=== PATIENT | female | born 1950 | race Caucasian/White ===

== ENCOUNTER 2016-10-29 11:18 | Emergency (ER) | payer MEDICAID ==
[~2016-10-29] VITALS: Ht 154.9 cm; Wt 68.9 kg
[~2016-10-29 11:18] MED LIST: AMLO5TAB4 PO; CLON2TAB4 PO; DIVA250T2 PO; DULO60CA41 PO; LORA2TAB95 PO; QUET200T PO; VIT500LI PO; ZOLP10TA2 PO; [UNRECOGNIZED DRUG - CODE] PO
[2016-10-29 11:19] VITALS: BP_SYST 106
[2016-10-29] MEDS ORDERED: fentaNYL CITRATE/PF 100 MCG/2 ML AMP IM ONE (14:30)
[2016-10-29] MEDS ORDERED: ONDANSETRON 4 MG ODT TAB PO ONE ×2 (14:30→15:45)
[2016-10-29] MEDS ORDERED: MORPHINE 4 MG/ML INJ. SYRINGE IVP ONE (15:45)
[2016-10-29 17:05] VITALS: BP_SYST 130
== END 2016-10-29 17:05 | disposition home or self-care (01) ==
LOC: SED 11:18
DX: M25.511 Pain in right shoulder (principal); I25.2 Old myocardial infarction; I10 Essential (primary) hypertension; G43.909 Migraine, unspecified, not intractable, without status migrainosus; F31.9 Bipolar disorder, unspecified; Z88.6 Allergy status to analgesic agent; Z88.8 Allergy status to other drugs, medicaments and biological substances
CPT/HCPCS: 73030; 73060; 96372; 96374; 99284; J2270; J3010; Q0162

== ENCOUNTER 2017-04-25 18:10 | Emergency (ER) | payer MEDICAID, OTHER ==
[~2017-04-25] VITALS: Ht 154.9 cm; Wt 74.8 kg
[2017-04-25 18:35] VITALS: BP_SYST 122
[2017-04-25] MEDS ORDERED: IPRATROPIUM/ALBUTEROL SULFATE 3 ML AMPUL.NEB INH ONE (19:00)
[2017-04-25] MEDS ORDERED: DEXAMETHASONE SOD PHOSPHATE 10 MG/ML VIAL IVP ONE (19:00)
[2017-04-25] MEDS ORDERED: MORPHINE 4 MG/ML INJ. SYRINGE IVP ONE (19:00)
[2017-04-25] MEDS ORDERED: DIPHENHYDRAMINE INJ 50 MG/ML VIAL IVP ONE (19:00)
[2017-04-25 19:30] LABS: BASOPHILS % (AUTO) 0.3 % (0.0-2.0); EOSINOPHILS # (AUTO) 0.3 K/uL (0.0-0.4); EOSINOPHILS % (AUTO) 2.6 % (0.0-4.0); HEMATOCRIT 40.8 % (36-48); HEMOGLOBIN 13.8 g/dL (12.0-16.0); LYMPHOCYTES # (AUTO) 3.1 K/uL (1.0-5.5); LYMPHOCYTES % (AUTO) 28.5 % (20.5-51.5); MEAN CORPUSCULAR HEMOGLOBIN 33 pg (27-31); MEAN CORPUSCULAR HGB CONC 34 % (32-36); MEAN CORPUSCULAR VOLUME 97 fL (79.0-98.0); MONOCYTES % (AUTO) 9.4 % (1.7-9.3); NEUTROPHILS # (AUTO) 6.6 K/uL (1.8-7.7); NEUTROPHILS % (AUTO) 59.2 % (40.0-70.0); PLATELET COUNT (AUTO) 289 K/uL (130-430); RED BLOOD CELL COUNT(AUTO) 4.22 MIL/uL (4.2-6.2); RED CELL DISTRIBUTION WIDTH 11.8 % (9.0-15.0)
[2017-04-25] MEDS ORDERED: NACL 0.9% 1,000 ML IV ONE (19:30)
[2017-04-25 19:46] LABS: CREATININE 1.03 mg/dL (0.55-1.30); POTASSIUM 3.7 mmol/L (3.5-5.1)
[2017-04-25 19:51] LABS: ALBUMIN 3.5 g/dL (3.4-4.8); TOTAL BILIRUBIN 0.3 mg/dL (0.0-1.0)
[2017-04-25] MEDS ORDERED: cefTRIAXone 1 GM in D5W 50 ML IV ONE (20:00)
[2017-04-25] MEDS ORDERED: cefTRIAXone 1 GM IVPB PREMIX 50 ML IV ONE (20:04)
[2017-04-25] MEDS ORDERED: MORPHINE 2 MG/ML INJ. SYRINGE IVP ONE (20:45)
[2017-04-25 22:00] VITALS: BP_SYST 130
== END 2017-04-25 22:00 | disposition home or self-care (01) ==
LOC: SED 18:10
DX: J18.9 Pneumonia, unspecified organism (principal); I25.2 Old myocardial infarction; I10 Essential (primary) hypertension; G43.909 Migraine, unspecified, not intractable, without status migrainosus; F31.9 Bipolar disorder, unspecified; F17.210 Nicotine dependence, cigarettes, uncomplicated; Z71.6 Tobacco abuse counseling; Z90.49 Acquired absence of other specified parts of digestive tract; Z90.710 Acquired absence of both cervix and uterus; Z88.6 Allergy status to analgesic agent; Z88.1 Allergy status to other antibiotic agents; Z79.899 Other long term (current) drug therapy
CPT/HCPCS: 36415; 71010; 80053; 83605; 85025; 86710; 87040; 93005; 94640; 96361; 96365; 96374; 96375; 96376; J0696; J1100; J1200; J2270 ×2; J7030; 99285

== ENCOUNTER 2017-05-31 09:40 | Emergency (ER) | payer OTHER ==
[~2017-05-31] VITALS: Ht 154.9 cm; Wt 73.5 kg
[2017-05-31 09:55] VITALS: BP_SYST 115
[2017-05-31] MEDS ORDERED: traMADol HCL HCL 50 MG TABLET (ULTRAM) PO ONE (11:30)
[2017-05-31 11:50] VITALS: BP_SYST 115
== END 2017-05-31 11:50 | disposition home or self-care (01) ==
LOC: SED 09:40
DX: G89.29 Other chronic pain (principal); M25.511 Pain in right shoulder; M54.9 Dorsalgia, unspecified; I10 Essential (primary) hypertension; I25.2 Old myocardial infarction; G43.909 Migraine, unspecified, not intractable, without status migrainosus; F31.9 Bipolar disorder, unspecified; Z76.5 Malingerer [conscious simulation]; Z88.6 Allergy status to analgesic agent
CPT/HCPCS: 99283

== ENCOUNTER 2017-11-05 12:20 | Emergency (ER) | payer MEDICARE, MEDICAID ==
[~2017-11-05] VITALS: Ht 154.9 cm; Wt 68.0 kg
[2017-11-05 12:27] VITALS: BP_SYST 111
[2017-11-05 14:44] LABS: BASOPHILS # (AUTO) 0.1 K/uL (0.0-0.2); BASOPHILS % (AUTO) 1.2 % (0.0-2.0); EOSINOPHILS # (AUTO) 0.3 K/uL (0.0-0.4); EOSINOPHILS % (AUTO) 3.2 % (0.0-4.0); HEMATOCRIT 39.9 % (36-48); HEMOGLOBIN 13.6 g/dL (12.0-16.0); LYMPHOCYTES # (AUTO) 2.3 K/uL (1.0-5.5); LYMPHOCYTES % (AUTO) 27.1 % (20.5-51.5); MEAN CORPUSCULAR HEMOGLOBIN 33 pg (27-31); MEAN CORPUSCULAR HGB CONC 34 % (32-36); MEAN CORPUSCULAR VOLUME 97 fL (79.0-98.0); MONOCYTES # (AUTO) 0.5 K/uL (0.0-1.0); MONOCYTES % (AUTO) 6.3 % (1.7-9.3); NEUTROPHILS # (AUTO) 5.2 K/uL (1.8-7.7); NEUTROPHILS % (AUTO) 62.2 % (40.0-70.0); PLATELET COUNT (AUTO) 247 K/uL (130-430); RED BLOOD CELL COUNT(AUTO) 4.13 MIL/uL (4.2-6.2); RED CELL DISTRIBUTION WIDTH 11.8 % (9.0-15.0); WHITE BLOOD COUNT (AUTO) 8.4 K/uL (4.8-10.8)
[2017-11-05 14:45] LABS: CALCIUM 9.4 mg/dL (8.4-11.0); CREATININE 0.91 mg/dL (0.55-1.30); POTASSIUM 4.1 mmol/L (3.5-5.1)
[2017-11-05 14:48] LABS: PROTHROMBIN TIME 10.2 SECS (9.5-12.5)
[2017-11-05 14:51] LABS: ALBUMIN 3.6 g/dL (3.4-4.8); TOTAL BILIRUBIN 0.2 mg/dL (0.0-1.0)
[2017-11-05 15:22] LABS: BILIRUBIN,URINE NEGATIVE (NEGATIVE); CLARITY/URINE CLEAR (CLEAR); COLOR,URINE YELLOW (YELLOW); GLUCOSE,URINE NEGATIVE (NEGATIVE); KETONES,URINE NEGATIVE (NEGATIVE); LEUKOCYTE ESTERASE ,URINE 1+ (NEGATIVE); NITRITE, URINE NEGATIVE (NEGATIVE); PH,URINE 5.5 (5.0-8.0); PROTEIN URINE NEGATIVE (NEGATIVE); UROBILINOGEN,URINE 0.2 (0.2-1.0)
[2017-11-05 15:26] LABS: BLOOD, URINE TRACE (NEGATIVE)
[2017-11-05 15:36] LABS: BARBITURATE, URINE NEGATIVE (NEG <=200); BENZODIAZEPINE, URINE POSITIVE (NEG <=150); CANNABINOID, URINE NEGATIVE (NEG <=50); COCAINE, URINE NEGATIVE (NEG <=150); METHAMPHETAMINES SCREEN,URINE NEGATIVE (NEG <=500); OPIATE, URINE POSITIVE (NEG <=100); PHENCYCLIDINE SCREEN,URINE NEGATIVE (NEG <=25); UR TRICYCLIC ANTIDEPRESSANTS NEGATIVE (NEG <=300); URINE AMPHETAMINE NEGATIVE (NEG <=500); URINE METHADONE NEGATIVE (NEG <=200); URINE OXYCODONE SCREEN NEGATIVE (NEG <=100); URINE PROPOXYPHENE SCREEN NEGATIVE (NEG <=300)
[2017-11-05 15:45] LABS: BACTERIA,URINE RARE /HPF (None Seen); RBC,URINE 0-3 /HPF (0-3); WBC,URINE 0-3 /HPF (0-3)
[2017-11-05] MEDS: ONDANSETRON 4 MG ODT TAB PO ONE (16:05)
[2017-11-05] MEDS: MORPHINE 4 MG/ML INJ. SYRINGE IM ONE (16:25)
[2017-11-05 16:30] VITALS: BP_SYST 122
== END 2017-11-05 16:32 | disposition home or self-care (01) ==
LOC: SED 12:20
DX: N39.0 Urinary tract infection, site not specified (principal); K59.00 Constipation, unspecified; E78.5 Hyperlipidemia, unspecified; I10 Essential (primary) hypertension; I25.2 Old myocardial infarction; F31.9 Bipolar disorder, unspecified; G43.909 Migraine, unspecified, not intractable, without status migrainosus; Z90.49 Acquired absence of other specified parts of digestive tract; Z88.5 Allergy status to narcotic agent; Z88.6 Allergy status to analgesic agent; Z90.710 Acquired absence of both cervix and uterus
CPT/HCPCS: 36415; 74176; 80053; 80307; 81000; 83690; 84484; 85025; 85610; 85730; 87086; 93005; 96372; 99285; J2270; Q0162

== ENCOUNTER 2017-12-02 08:23 | Emergency (ER) | payer MEDICARE, MEDICAID ==
[~2017-12-02] VITALS: Ht 154.9 cm; Wt 68.0 kg
[~2017-12-02 08:23] MED LIST changes: +ALBU8.5H8 INH; +ASPI-1063 PO; +COR3.125 PO; +FAMO20TA98 PO; +SIMV20TA2 PO
[2017-12-02 08:27] VITALS: BP_SYST 103
[2017-12-02] MEDS ORDERED: ALBUTEROL SULFATE 0.083% 2.5 MG/3 ML VIAL.NEB INH ONE (09:15)
[2017-12-02] MEDS ORDERED: IPRATROPIUM BROM 0.5 MG/2.5 ML VIAL.NEB (ATROVENT) INH ONE (09:15)
[2017-12-02 09:22] LABS: BASOPHILS % (AUTO) 0.6 % (0.0-2.0); EOSINOPHILS # (AUTO) 0.2 K/uL (0.0-0.4); EOSINOPHILS % (AUTO) 2.8 % (0.0-4.0); HEMATOCRIT 42.8 % (36-48); HEMOGLOBIN 14.5 g/dL (12.0-16.0); LYMPHOCYTES # (AUTO) 1.9 K/uL (1.0-5.5); MEAN CORPUSCULAR HEMOGLOBIN 32 pg (27-31); MEAN CORPUSCULAR HGB CONC 34 % (32-36); MEAN CORPUSCULAR VOLUME 95 fL (79.0-98.0); MONOCYTES # (AUTO) 0.5 K/uL (0.0-1.0); MONOCYTES % (AUTO) 6.6 % (1.7-9.3); NEUTROPHILS # (AUTO) 5.4 K/uL (1.8-7.7); PLATELET COUNT (AUTO) 250 K/uL (130-430); RED BLOOD CELL COUNT(AUTO) 4.49 MIL/uL (4.2-6.2); RED CELL DISTRIBUTION WIDTH 12.2 % (9.0-15.0)
[2017-12-02 09:28] LABS: CALCIUM 9.2 mg/dL (8.4-11.0); CREATININE 0.72 mg/dL (0.55-1.30); POTASSIUM 3.6 mmol/L (3.5-5.1)
[2017-12-02] MEDS ORDERED: HYDROcodone/ACETAMIN 5-325 MG TAB (NORCO/ VICODIN) PO ONE (09:30)
[2017-12-02 09:33] LABS: PROTHROMBIN TIME 10.4 SECS (9.5-12.5)
[2017-12-02 09:39] LABS: TOTAL BILIRUBIN 0.4 mg/dL (0.0-1.0)
[2017-12-02 09:40] LABS: ALBUMIN 3.7 g/dL (3.4-4.8)
[2017-12-02 11:42] VITALS: BP_SYST 108
== END 2017-12-02 11:34 | disposition home or self-care (01) ==
LOC: SED 08:23
DX: J45.909 Unspecified asthma, uncomplicated (principal); I10 Essential (primary) hypertension; I25.2 Old myocardial infarction; F31.9 Bipolar disorder, unspecified; Z79.82 Long term (current) use of aspirin; Z88.6 Allergy status to analgesic agent; Z79.899 Other long term (current) drug therapy; Z88.8 Allergy status to other drugs, medicaments and biological substances
CPT/HCPCS: 36415; 70450; 71045; 80053; 82550; 83880; 84484; 85025; 85610; 85730; 93005; 94640; 99285; J7613

== ENCOUNTER 2018-02-05 15:30 | Inpatient (IN) | payer MEDICARE, MEDICAID ==
[~2018-02-05] VITALS: Ht 154.9 cm; Wt 65.8 kg
[~2018-02-05 15:30] MED LIST changes: -ASPI-1063 PO; +ASPI-1153 PO; +CITA40TA11 PO; +CLON2TAB11 PO; -CLON2TAB4 PO; +FAMO-132 PO; -FAMO20TA98 PO; -[UNRECOGNIZED DRUG - CODE] PO
[2018-02-05] MEDS ORDERED: ALBUTEROL SULFATE 0.083% 2.5 MG/3 ML VIAL.NEB INH ONE (16:00)
[2018-02-05] MEDS ORDERED: LEVOFLOXACIN 500 MG/D5W 100 ML IV ONE (16:00)
[2018-02-05 16:04] VITALS: BP_SYST 95
[2018-02-05] MEDS ORDERED: DIPHENHYDRAMINE INJ 50 MG/ML VIAL IVP ONE (16:15)
[2018-02-05] MEDS ORDERED: MORPHINE 2 MG/ML INJ. SYRINGE IVP ONE (16:15)
[2018-02-05 16:25] LABS: CALCIUM 9.2 mg/dL (8.4-11.0); CREATININE 0.87 mg/dL (0.55-1.30); POTASSIUM 3.5 mmol/L (3.5-5.1)
[2018-02-05 16:26] LABS: PROTHROMBIN TIME 10.2 SECS (9.5-12.5)
[2018-02-05 16:28] LABS: BASOPHILS # (AUTO) 0.1 K/uL (0.0-0.2); EOSINOPHILS # (AUTO) 0.3 K/uL (0.0-0.4); LYMPHOCYTES # (AUTO) 2.9 K/uL (1.0-5.5)
[2018-02-05 16:30] LABS: ALBUMIN 3.7 g/dL (3.4-4.8); TOTAL BILIRUBIN 0.3 mg/dL (0.0-1.0)
[2018-02-05 16:36] LABS: BASOPHILS % (AUTO) 0.9 % (0.0-2.0); EOSINOPHILS % (AUTO) 3.5 % (0.0-4.0); HEMATOCRIT 38.8 % (36-48); HEMOGLOBIN 13.8 g/dL (12.0-16.0); LYMPHOCYTES % (AUTO) 34.8 % (20.5-51.5); MEAN CORPUSCULAR HEMOGLOBIN 34 pg (27-31); MEAN CORPUSCULAR HGB CONC 36 % (32-36); MEAN CORPUSCULAR VOLUME 95 fL (79.0-98.0); MONOCYTES # (AUTO) 0.7 K/uL (0.0-1.0); MONOCYTES % (AUTO) 8.6 % (1.7-9.3); NEUTROPHILS # (AUTO) 4.2 K/uL (1.8-7.7); NEUTROPHILS % (AUTO) 52.2 % (40.0-70.0); PLATELET COUNT (AUTO) 288 K/uL (130-430); RED BLOOD CELL COUNT(AUTO) 4.08 MIL/uL (4.2-6.2); RED CELL DISTRIBUTION WIDTH 12.3 % (9.0-15.0); WHITE BLOOD COUNT (AUTO) 8.2 K/uL (4.8-10.8)
[2018-02-05 17:45] LABS: BILIRUBIN,URINE NEGATIVE (NEGATIVE); BLOOD, URINE NEGATIVE (NEGATIVE); CLARITY/URINE CLEAR (CLEAR); COLOR,URINE YELLOW (YELLOW); GLUCOSE,URINE NEGATIVE (NEGATIVE); KETONES,URINE NEGATIVE (NEGATIVE); LEUKOCYTE ESTERASE ,URINE TRACE (NEGATIVE); NITRITE, URINE NEGATIVE (NEGATIVE); PH,URINE 5.5 (5.0-8.0); PROTEIN URINE NEGATIVE (NEGATIVE); UROBILINOGEN,URINE 0.2 (0.2-1.0)
[2018-02-05 17:50] LABS: BACTERIA,URINE FEW /HPF (None Seen); HYALINE CASTS, URINE 0-10 /LPF (None Seen); RBC,URINE 0-3 /HPF (0-3)
[2018-02-05 18:51] VITALS: BP_SYST 102
[2018-02-05 19:30] VITALS: BP_SYST 102
[2018-02-05 20:00] VITALS: BP_SYST 107
[2018-02-05] MEDS ORDERED: IPRATROPIUM/ALBUTEROL SULFATE 3 ML AMPUL.NEB INH PRN (20:15)
[2018-02-05] MEDS: QUEtiapine FUMARATE 100 MG TABLET PO SCH (21:06)
[2018-02-05] MEDS ORDERED: DIVALPROEX SODIUM 500 MG TAB.SR.24H (DEPAKOTE ER) PO ONE (21:06)
[2018-02-05] MEDS: LORazepam 1 MG TABLET PO SCH (21:07)
[2018-02-05] MEDS: ZOLPIDEM TARTRATE 5 MG TABLET PO SCH (21:07)
[2018-02-05] MEDS: clonazePAM 0.5 MG TABLET PO SCH (21:08)
[2018-02-05] MEDS: CARVEDILOL 3.125 MG TABLET (COREG) PO SCH (21:08)
[2018-02-05] MEDS: DIVALPROEX SODIUM 250 MG TAB.SR.24H (DEPAKOTE ER) PO SCH (21:09)
[2018-02-05] MEDS: SIMVASTATIN 20 MG TABLET PO SCH (21:12)
[2018-02-06 01:09] VITALS: BP_SYST 98
[2018-02-06 08:16] VITALS: BP_SYST 111
[2018-02-06] MEDS: CITALOPRAM HYDROBROMIDE 20 MG TABLET PO SCH (08:48)
[2018-02-06] MEDS: LORazepam 1 MG TABLET PO SCH ×2 (08:49→21:00)
[2018-02-06] MEDS: DIVALPROEX SODIUM 250 MG TAB.SR.24H (DEPAKOTE ER) PO SCH ×2 (08:49→20:59)
[2018-02-06] MEDS: clonazePAM 0.5 MG TABLET PO SCH (08:49)
[2018-02-06] MEDS: ASPIRIN 81 MG TABLET(ECOTRIN) PO SCH (08:49)
[2018-02-06] MEDS: FAMOTIDINE 20 MG TABLET PO SCH (08:50)
[2018-02-06] MEDS: amLODIPine BESYLATE 5 MG TABLET PO SCH (08:51)
[2018-02-06] MEDS: MORPHINE 2 MG/ML INJ. SYRINGE IVP PRN ×4 (08:55→21:17)
[2018-02-06] MEDS ORDERED: QUEtiapine FUMARATE 100 MG TABLET PO SCH (09:00)
[2018-02-06] MEDS ORDERED: DULoxetine HCL 30 MG CAPSULE.DR (CYMBALTA) PO SCH (09:00)
[2018-02-06] MEDS: CARVEDILOL 3.125 MG TABLET (COREG) PO SCH ×2 (09:00→21:00)
[2018-02-06 11:28] VITALS: BP_SYST 104
[2018-02-06 13:08] LABS: CALCIUM 9.4 mg/dL (8.4-11.0); CREATININE 0.74 mg/dL (0.55-1.30); POTASSIUM 3.8 mmol/L (3.5-5.1)
[2018-02-06 15:18] VITALS: BP_SYST 110
[2018-02-06 16:50] LABS: BASOPHILS # (AUTO) 0.1 K/uL (0.0-0.2); BASOPHILS % (AUTO) 0.6 % (0.0-2.0); EOSINOPHILS # (AUTO) 0.3 K/uL (0.0-0.4); EOSINOPHILS % (AUTO) 3.1 % (0.0-4.0); HEMATOCRIT 38.9 % (36-48); HEMOGLOBIN 13.5 g/dL (12.0-16.0); LYMPHOCYTES # (AUTO) 2.1 K/uL (1.0-5.5); LYMPHOCYTES % (AUTO) 24.5 % (20.5-51.5); MEAN CORPUSCULAR HEMOGLOBIN 33 pg (27-31); MEAN CORPUSCULAR HGB CONC 35 % (32-36); MEAN CORPUSCULAR VOLUME 95 fL (79.0-98.0); MONOCYTES # (AUTO) 0.5 K/uL (0.0-1.0); MONOCYTES % (AUTO) 5.4 % (1.7-9.3); NEUTROPHILS # (AUTO) 5.5 K/uL (1.8-7.7); NEUTROPHILS % (AUTO) 66.4 % (40.0-70.0); PLATELET COUNT (AUTO) 242 K/uL (130-430); RED BLOOD CELL COUNT(AUTO) 4.09 MIL/uL (4.2-6.2); RED CELL DISTRIBUTION WIDTH 12.1 % (9.0-15.0); WHITE BLOOD COUNT (AUTO) 8.5 K/uL (4.8-10.8)
[2018-02-06] MEDS: LEVOFLOXACIN 500 MG/D5W 100 ML IV SCH (17:00)
[2018-02-06 20:00] VITALS: BP_SYST 108
[2018-02-06] MEDS: QUEtiapine FUMARATE 100 MG TABLET PO SCH (20:59)
[2018-02-06] MEDS: SIMVASTATIN 20 MG TABLET PO SCH (20:59)
[2018-02-06] MEDS: ZOLPIDEM TARTRATE 5 MG TABLET PO SCH (21:00)
[2018-02-07] VITALS: BP_SYST 102
[2018-02-07] MEDS: MORPHINE 2 MG/ML INJ. SYRINGE IVP PRN ×3 (03:21→23:10)
[2018-02-07 04:55] VITALS: BP_SYST 97
[2018-02-07] MEDS: MORPHINE 4 MG/ML INJ. SYRINGE IVP PRN (07:39)
[2018-02-07 08:00] VITALS: BP_SYST 80
[2018-02-07] MEDS: amLODIPine BESYLATE 5 MG TABLET PO SCH (09:00)
[2018-02-07] MEDS: CARVEDILOL 3.125 MG TABLET (COREG) PO SCH (09:00)
[2018-02-07] MEDS ORDERED: NACL 0.9% 1,000 ML IV ONE (09:45)
[2018-02-07] MEDS: ASPIRIN 81 MG TABLET(ECOTRIN) PO SCH (10:32)
[2018-02-07] MEDS: DIVALPROEX SODIUM 250 MG TAB.SR.24H (DEPAKOTE ER) PO SCH ×2 (10:32→20:04)
[2018-02-07] MEDS: CITALOPRAM HYDROBROMIDE 20 MG TABLET PO SCH (10:32)
[2018-02-07] MEDS: PREDNISONE 20 MG TABLET PO SCH (10:37)
[2018-02-07] MEDS: LORazepam 1 MG TABLET PO SCH ×2 (10:38→20:05)
[2018-02-07] MEDS: FAMOTIDINE 20 MG TABLET PO SCH (10:38)
[2018-02-07 12:35] VITALS: BP_SYST 138
[2018-02-07 16:35] VITALS: BP_SYST 146
[2018-02-07] MEDS: LEVOFLOXACIN 500 MG/D5W 100 ML IV SCH (17:47)
[2018-02-07] MEDS: QUEtiapine FUMARATE 100 MG TABLET PO SCH (17:48)
[2018-02-07 20:00] VITALS: BP_SYST 143
[2018-02-07] MEDS: SIMVASTATIN 20 MG TABLET PO SCH (20:04)
[2018-02-07] MEDS: ZOLPIDEM TARTRATE 5 MG TABLET PO SCH (20:04)
[2018-02-07] MEDS: PROMETHAZINE-DM 6.25 MG-15 MG/5 ML UDC PO PRN (20:05)
[2018-02-08 01:16] VITALS: BP_SYST 113
[2018-02-08] MEDS: MORPHINE 2 MG/ML INJ. SYRINGE IVP PRN ×2 (03:29→14:13)
[2018-02-08 06:50] LABS: BASOPHILS # (AUTO) 0.1 K/uL (0.0-0.2); BASOPHILS % (AUTO) 1.3 % (0.0-2.0); EOSINOPHILS % (AUTO) 0.3 % (0.0-4.0); HEMATOCRIT 35.8 % (36-48); HEMOGLOBIN 12.5 g/dL (12.0-16.0); LYMPHOCYTES # (AUTO) 1.5 K/uL (1.0-5.5); LYMPHOCYTES % (AUTO) 14.4 % (20.5-51.5); MEAN CORPUSCULAR HEMOGLOBIN 34 pg (27-31); MEAN CORPUSCULAR HGB CONC 35 % (32-36); MEAN CORPUSCULAR VOLUME 97 fL (79.0-98.0); MONOCYTES # (AUTO) 0.5 K/uL (0.0-1.0); MONOCYTES % (AUTO) 5.3 % (1.7-9.3); NEUTROPHILS # (AUTO) 8.1 K/uL (1.8-7.7); NEUTROPHILS % (AUTO) 78.7 % (40.0-70.0); PLATELET COUNT (AUTO) 249 K/uL (130-430); RED BLOOD CELL COUNT(AUTO) 3.69 MIL/uL (4.2-6.2); WHITE BLOOD COUNT (AUTO) 10.3 K/uL (4.8-10.8)
[2018-02-08 07:02] LABS: CALCIUM 8.9 mg/dL (8.4-11.0); CREATININE 0.83 mg/dL (0.55-1.30); POTASSIUM 4.2 mmol/L (3.5-5.1)
[2018-02-08 08:00] VITALS: BP_SYST 115
[2018-02-08] MEDS: ASPIRIN 81 MG TABLET(ECOTRIN) PO SCH (09:58)
[2018-02-08] MEDS: DIVALPROEX SODIUM 250 MG TAB.SR.24H (DEPAKOTE ER) PO SCH ×2 (09:58→21:06)
[2018-02-08] MEDS: MORPHINE 4 MG/ML INJ. SYRINGE IVP PRN ×2 (09:58→18:08)
[2018-02-08] MEDS: FAMOTIDINE 20 MG TABLET PO SCH (09:58)
[2018-02-08] MEDS: LORazepam 1 MG TABLET PO SCH ×2 (09:58→21:06)
[2018-02-08] MEDS: PREDNISONE 20 MG TABLET PO SCH (09:59)
[2018-02-08] MEDS: CITALOPRAM HYDROBROMIDE 20 MG TABLET PO SCH (09:59)
[2018-02-08 12:00] VITALS: BP_SYST 118
[2018-02-08] MEDS: PROMETHAZINE-DM 6.25 MG-15 MG/5 ML UDC PO PRN (14:21)
[2018-02-08] MEDS: traMADol HCL HCL 50 MG TABLET (ULTRAM) PO PRN (15:40)
[2018-02-08] MEDS: QUEtiapine FUMARATE 100 MG TABLET PO SCH (17:44)
[2018-02-08] MEDS: LEVOFLOXACIN 500 MG/D5W 100 ML IV SCH (17:44)
[2018-02-08] MEDS ORDERED: LORazepam 1 MG TABLET PO PRN (19:00)
[2018-02-08 20:00] VITALS: BP_SYST 117
[2018-02-08] MEDS: SIMVASTATIN 20 MG TABLET PO SCH (21:04)
[2018-02-08] MEDS: ZOLPIDEM TARTRATE 5 MG TABLET PO SCH (21:04)
[2018-02-09 07:12] LABS: FREE T4 (FREE THYROXINE) 0.6 ng/dL (0.6-1.6); THYROID STIMULATING HORMONE 0.06 uIu/mL (0.34-4.82)
[2018-02-09] MEDS: FAMOTIDINE 20 MG TABLET PO SCH (08:36)
[2018-02-09] MEDS: CITALOPRAM HYDROBROMIDE 20 MG TABLET PO SCH (08:36)
[2018-02-09] MEDS: ASPIRIN 81 MG TABLET(ECOTRIN) PO SCH (08:36)
[2018-02-09] MEDS: LORazepam 1 MG TABLET PO SCH (08:37)
[2018-02-09] MEDS: DIVALPROEX SODIUM 250 MG TAB.SR.24H (DEPAKOTE ER) PO SCH (08:37)
[2018-02-09] MEDS: MORPHINE 2 MG/ML INJ. SYRINGE IVP PRN ×2 (08:40→14:35)
[2018-02-09] MEDS ORDERED: PREDNISONE 20 MG TABLET PO SCH (09:00)
[2018-02-09] MEDS ORDERED: QUEtiapine FUMARATE 100 MG TABLET PO SCH (09:00)
[2018-02-09 11:08] VITALS: BP_SYST 141
[2018-02-09] MEDS: traMADol HCL HCL 50 MG TABLET (ULTRAM) PO PRN ×2 (12:17→18:47)
[2018-02-09 14:58] VITALS: BP_SYST 139
[2018-02-09] MEDS: LEVOFLOXACIN 500 MG/D5W 100 ML IV SCH (17:27)
[2018-02-09] MEDS: QUEtiapine FUMARATE 100 MG TABLET PO SCH (17:28)
[2018-02-09 17:52] VITALS: BP_SYST 139
[2018-02-09] MEDS ORDERED: LEVO250T2 PO (18:07)
[2018-02-09] MEDS ORDERED: IPRA3AMP9 INH (18:07)
[2018-02-09] MEDS ORDERED: LACT1CAP68 PO (18:08)
== END 2018-02-09 20:10 | disposition home health service (06) | DRG 190 ==
LOC: SED 15:30 → STU 18:20 → SMU 02-08 18:50
PROVIDERS: ADMIT Internal Medicine; ATTEND Internal Medicine
DX: J44.1 Chronic obstructive pulmonary disease with (acute) exacerbation (principal); J18.9 Pneumonia, unspecified organism; N39.0 Urinary tract infection, site not specified; I11.9 Hypertensive heart disease without heart failure; F99 Mental disorder, not otherwise specified; J44.0 Chronic obstructive pulmonary disease with (acute) lower respiratory infection; R07.89 Other chest pain; G89.4 Chronic pain syndrome; E78.5 Hyperlipidemia, unspecified; E03.9 Hypothyroidism, unspecified; I25.10 Atherosclerotic heart disease of native coronary artery without angina pectoris; J20.9 Acute bronchitis, unspecified; F17.210 Nicotine dependence, cigarettes, uncomplicated; F41.9 Anxiety disorder, unspecified; E66.3 Overweight; F31.9 Bipolar disorder, unspecified; K21.9 Gastro-esophageal reflux disease without esophagitis; Z79.82 Long term (current) use of aspirin; Z90.710 Acquired absence of both cervix and uterus; I25.2 Old myocardial infarction; Z88.6 Allergy status to analgesic agent; Z88.8 Allergy status to other drugs, medicaments and biological substances; Z91.013 Allergy to seafood; Z79.899 Other long term (current) drug therapy; Z90.49 Acquired absence of other specified parts of digestive tract
CPT/HCPCS: 36415; 71045; 71046-TC; 80048; 80053; 81000-TC; 82962; 83605; 83880; 84439; 84443-TC; 84484; 85025; 85610-TC; 87040-TC; 87086; 93005; 94640; 96365; 96375; 99285; J1200; J1956; J2270; J7030; J7512; J7613

== ENCOUNTER 2018-03-09 14:25 | Emergency (ER) | payer MEDICARE, MEDICAID ==
[~2018-03-09] VITALS: Ht 154.9 cm; Wt 69.9 kg
[2018-03-09 14:25] VITALS: BP_SYST 124
[~2018-03-09 14:25] MED LIST changes: +IPRA3AMP9 INH; +LACT1CAP68 PO; +LEVO250T2 PO; -ZOLP10TA2 PO
[2018-03-09] MEDS ORDERED: fentaNYL CITRATE/PF 100 MCG/2 ML AMP IM ONE (15:00)
[2018-03-09 15:22] LABS: BASOPHILS # (AUTO) 0.1 K/uL (0.0-0.2); BASOPHILS % (AUTO) 1.2 % (0.0-2.0); EOSINOPHILS # (AUTO) 0.3 K/uL (0.0-0.4); EOSINOPHILS % (AUTO) 2.4 % (0.0-4.0); HEMATOCRIT 37.5 % (36-48); HEMOGLOBIN 12.6 g/dL (12.0-16.0); LYMPHOCYTES # (AUTO) 2.6 K/uL (1.0-5.5); LYMPHOCYTES % (AUTO) 23.4 % (20.5-51.5); MEAN CORPUSCULAR HEMOGLOBIN 32 pg (27-31); MEAN CORPUSCULAR HGB CONC 34 % (32-36); MEAN CORPUSCULAR VOLUME 96 fL (79.0-98.0); MONOCYTES # (AUTO) 0.5 K/uL (0.0-1.0); MONOCYTES % (AUTO) 4.5 % (1.7-9.3); NEUTROPHILS # (AUTO) 7.5 K/uL (1.8-7.7); NEUTROPHILS % (AUTO) 68.5 % (40.0-70.0); PLATELET COUNT (AUTO) 281 K/uL (130-430); RED CELL DISTRIBUTION WIDTH 11.8 % (9.0-15.0)
[2018-03-09 15:33] LABS: CALCIUM 9.5 mg/dL (8.4-11.0); CREATININE 0.87 mg/dL (0.55-1.30); POTASSIUM 3.4 mmol/L (3.5-5.1)
[2018-03-09 15:38] LABS: ALBUMIN 3.6 g/dL (3.4-4.8); TOTAL BILIRUBIN 0.3 mg/dL (0.0-1.0)
[2018-03-09] MEDS ORDERED: ONDANSETRON 4 MG ODT TAB PO ONE (16:15)
[2018-03-09 16:18] VITALS: BP_SYST 121
== END 2018-03-09 16:18 | disposition home or self-care (01) ==
LOC: SED 14:25
DX: R07.89 Other chest pain (principal); R10.32 Left lower quadrant pain; R11.0 Nausea; R06.00 Dyspnea, unspecified; J44.9 Chronic obstructive pulmonary disease, unspecified; I10 Essential (primary) hypertension; F17.200 Nicotine dependence, unspecified, uncomplicated; Z90.49 Acquired absence of other specified parts of digestive tract; Z90.710 Acquired absence of both cervix and uterus; Z79.899 Other long term (current) drug therapy; Z88.6 Allergy status to analgesic agent
CPT/HCPCS: 36415; 71045; 80053; 82550; 84484; 85025; 93005; 96372; 99285; J3010; Q0162

== ENCOUNTER 2018-04-18 08:09 | Emergency (ER) | payer MEDICARE, MEDICAID ==
[~2018-04-18] VITALS: Ht 154.9 cm; Wt 66.2 kg
[2018-04-18 08:31] VITALS: BP_SYST 130
[2018-04-18] MEDS ORDERED: NACL 0.9% 1,000 ML IV ONE (08:50)
[2018-04-18] MEDS ORDERED: ONDANSETRON HCL 4 MG/2 ML VIAL IVP ONE (09:00)
[2018-04-18] MEDS ORDERED: MORPHINE 4 MG/ML INJ. SYRINGE IVP ONE ×2 (09:00→10:30)
[2018-04-18 09:28] LABS: BASOPHILS # (AUTO) 0.2 K/uL (0.0-0.2); BASOPHILS % (AUTO) 1.8 % (0.0-2.0); EOSINOPHILS # (AUTO) 0.1 K/uL (0.0-0.4); EOSINOPHILS % (AUTO) 0.6 % (0.0-4.0); HEMATOCRIT 46.8 % (36-48); HEMOGLOBIN 15.4 g/dL (12.0-16.0); LYMPHOCYTES # (AUTO) 2.8 K/uL (1.0-5.5); LYMPHOCYTES % (AUTO) 20.3 % (20.5-51.5); MEAN CORPUSCULAR HEMOGLOBIN 31 pg (27-31); MEAN CORPUSCULAR HGB CONC 33 % (32-36); MEAN CORPUSCULAR VOLUME 95 fL (79.0-98.0); MONOCYTES # (AUTO) 0.8 K/uL (0.0-1.0); MONOCYTES % (AUTO) 5.9 % (1.7-9.3); NEUTROPHILS # (AUTO) 9.9 K/uL (1.8-7.7); NEUTROPHILS % (AUTO) 71.4 % (40.0-70.0); PLATELET COUNT (AUTO) 310 K/uL (130-430); RED BLOOD CELL COUNT(AUTO) 4.92 MIL/uL (4.2-6.2); RED CELL DISTRIBUTION WIDTH 12.5 % (9.0-15.0); WHITE BLOOD COUNT (AUTO) 13.8 K/uL (4.8-10.8)
[2018-04-18 09:38] LABS: CALCIUM 9.5 mg/dL (8.4-11.0); CREATININE 0.68 mg/dL (0.55-1.30); POTASSIUM 3.7 mmol/L (3.5-5.1)
[2018-04-18 09:41] LABS: BILIRUBIN,URINE NEGATIVE (NEGATIVE); CLARITY/URINE CLEAR (CLEAR); COLOR,URINE YELLOW (YELLOW); GLUCOSE,URINE NEGATIVE (NEGATIVE); KETONES,URINE NEGATIVE (NEGATIVE); LEUKOCYTE ESTERASE ,URINE TRACE (NEGATIVE); NITRITE, URINE NEGATIVE (NEGATIVE); PROTEIN URINE NEGATIVE (NEGATIVE); UROBILINOGEN,URINE 0.2 (0.2-1.0)
[2018-04-18 09:43] LABS: ALBUMIN 3.8 g/dL (3.4-4.8); TOTAL BILIRUBIN 0.4 mg/dL (0.0-1.0)
[2018-04-18 10:06] LABS: BLOOD, URINE TRACE (NEGATIVE)
[2018-04-18 10:08] LABS: BACTERIA,URINE RARE /HPF (None Seen)
[2018-04-18 13:15] VITALS: BP_SYST 134
== END 2018-04-18 13:15 | disposition home or self-care (01) ==
LOC: SED 08:09
DX: M47.896 Other spondylosis, lumbar region (principal); M54.5 Low back pain; F17.200 Nicotine dependence, unspecified, uncomplicated; I25.2 Old myocardial infarction; J44.9 Chronic obstructive pulmonary disease, unspecified; I10 Essential (primary) hypertension; G43.909 Migraine, unspecified, not intractable, without status migrainosus; E78.5 Hyperlipidemia, unspecified; F31.9 Bipolar disorder, unspecified; W10.9XXA Fall (on) (from) unspecified stairs and steps, initial encounter; Y93.89 Activity, other specified; Y92.89 Other specified places as the place of occurrence of the external cause; Y99.8 Other external cause status
CPT/HCPCS: 36415; 72100; 72131; 80053; 81000; 85025; 96374; 96375; 96376; 99285; J2270; J2405; J7030

== ENCOUNTER 2018-04-29 14:25 | Emergency (ER) | payer MEDICARE, MEDICAID ==
[~2018-04-29] VITALS: Ht 154.9 cm; Wt 67.1 kg
[2018-04-29 14:37] VITALS: BP_SYST 123
--- NOTE | 2018-04-29 14:40 | NUR ---
Patient to ER bed 04 to gown for evaluation. Side rails up. Report given to ROXI LEAL.
--- NOTE | 2018-04-29 14:50 | NUR ---
Patient arrived via POV, AAOX4, and ambulatory with steady gait. C/C of upper and lower back pain. S/P trip and fall. Patient has +2 peripheral pulses in lower extremities. Patient has sensation to bilateral lower extremities. Will continue to follow up and monitor.
--- NOTE | 2018-04-29 14:52 | NUR ---
ER at bedside examining patient.
[2018-04-29] MEDS ORDERED: HYDROcodone/ACETAMIN 5-325 MG TAB (NORCO/ VICODIN) PO ONE (15:30)
[2018-04-29] MEDS ORDERED: DIPHENHYDRAMINE INJ 50 MG/ML VIAL IVP ONE (16:45)
[2018-04-29] MEDS ORDERED: MORPHINE 4 MG/ML INJ. SYRINGE IVP ONE (16:45)
[2018-04-29 17:55] VITALS: BP_SYST 129
--- NOTE | 2018-04-29 17:55 | NUR ---
Patient given written and verbal discharge instructions and verbalizes understanding. ER MD discussed with patient the results and treatment provided. Patient in stable condition. ID arm band removed. IV catheter removed intact and dressing applied, no active bleeding. No Rx given. Patient educated on pain management and to follow up with PMD. Pain Scale 2/10. Opportunity for questions provided and answered.
== END 2018-04-29 17:55 | disposition home or self-care (01) ==
LOC: SED 14:25
DX: S39.012A Strain of muscle, fascia and tendon of lower back, initial encounter (principal); I25.2 Old myocardial infarction; J44.9 Chronic obstructive pulmonary disease, unspecified; I10 Essential (primary) hypertension; G43.909 Migraine, unspecified, not intractable, without status migrainosus; E78.5 Hyperlipidemia, unspecified; F31.9 Bipolar disorder, unspecified; Z90.49 Acquired absence of other specified parts of digestive tract; Z90.710 Acquired absence of both cervix and uterus; Z88.6 Allergy status to analgesic agent; Z79.82 Long term (current) use of aspirin; Z79.899 Other long term (current) drug therapy; W01.0XXA Fall on same level from slipping, tripping and stumbling without subsequent striking against object, initial encounter; Y93.89 Activity, other specified; Y92.89 Other specified places as the place of occurrence of the external cause; Y99.8 Other external cause status
CPT/HCPCS: 72131; 96374; 96375; 99284; J1200; J2270

== ENCOUNTER 2018-05-02 11:09 | Emergency (ER) | payer MEDICARE, MEDICAID ==
[~2018-05-02] VITALS: Ht 154.9 cm; Wt 65.8 kg
[2018-05-02 11:14] VITALS: BP_SYST 114
[2018-05-02] MEDS ORDERED: fentaNYL CITRATE/PF 100 MCG/2 ML AMP IM ONE ×2 (11:45→12:45)
[2018-05-02] MEDS ORDERED: methylPREDNISolone SOD SUCC/PF 62.5 MG/ML VIAL IM ONE (12:45)
[2018-05-02 14:06] VITALS: BP_SYST 116
== END 2018-05-02 14:06 | disposition home or self-care (01) ==
LOC: SED 11:09
DX: G89.29 Other chronic pain (principal); M54.5 Low back pain; I25.2 Old myocardial infarction; J44.9 Chronic obstructive pulmonary disease, unspecified; I10 Essential (primary) hypertension; E78.5 Hyperlipidemia, unspecified; G43.909 Migraine, unspecified, not intractable, without status migrainosus; F31.9 Bipolar disorder, unspecified; Z88.6 Allergy status to analgesic agent; Z79.82 Long term (current) use of aspirin; Z79.899 Other long term (current) drug therapy
CPT/HCPCS: 96372; 99284; J2930; J3010

== ENCOUNTER 2018-05-05 10:21 | Emergency (ER) | payer MEDICARE, MEDICAID ==
[~2018-05-05] VITALS: Ht 154.9 cm; Wt 69.9 kg
[2018-05-05 10:21] VITALS: BP_SYST 153
--- NOTE | 2018-05-05 10:21 | NUR ---
BROUGHT BACK TO BED #8 AND TRIAGED. REPORT GIVEN TO ALEXA
--- NOTE | 2018-05-05 10:30 | NUR ---
Pt C/O shortness of breath and chest pain x 1 day. Pt states she feels like shes drowning. Pt states she is experiencing weakness in the legs and chest pain is 8/10 radiating to the LT arm. Pt's vitals signs are stable at this time, will continue to monitor.
--- NOTE | 2018-05-05 10:40 | NUR ---
ER at bedside examining patient.
[2018-05-05] MEDS ORDERED: fentaNYL CITRATE/PF 100 MCG/2 ML AMP IM ONE (11:30)
--- NOTE | 2018-05-05 11:38 | NUR ---
SPOKE WITH PTS PMD OFFICE AND THEY STATED THAT THEY DID NOT TELL HER TO COME TO ER FOR PNEUMONIA. SHE WAS TOLD TO COME BACK TO CLINIC IF HER COUGH GOT WORSE. DR THOMAS AWARE OF INFO
--- NOTE | 2018-05-05 11:44 | NUR ---
PT REFUSING FENTYL, STATING IT DOES NOT WORK. REQUESTING NORCO 2 TABS AND MORPHINE, INFORMATION GIVEN TO DR THOMAS. DR THOMAS AT BEDSIDE SPEAKING WITH PT.
--- NOTE | 2018-05-05 11:48 | NUR ---
PT ELOPED OUT OF HOSPITAL, WALKING SWIFTLY UP TO BUS STOP WITH STEADY GAIT. PT ELOPED
== END 2018-05-05 11:48 | disposition left against medical advice (07) ==
LOC: SED 10:21
DX: M25.512 Pain in left shoulder (principal); I25.2 Old myocardial infarction; J44.9 Chronic obstructive pulmonary disease, unspecified; I10 Essential (primary) hypertension; G43.909 Migraine, unspecified, not intractable, without status migrainosus; E78.5 Hyperlipidemia, unspecified; F31.9 Bipolar disorder, unspecified; Z88.6 Allergy status to analgesic agent; Z79.82 Long term (current) use of aspirin; Z79.899 Other long term (current) drug therapy; Z53.20 Procedure and treatment not carried out because of patient's decision for unspecified reasons
CPT/HCPCS: 71045; 99283; J3010

== ENCOUNTER 2021-05-03 15:47 | Inpatient (IN) | payer OTHER, MEDICAID, SELFPAY ==
[~2021-05-03] VITALS: Ht 154.9 cm; Wt 66.7 kg
[2021-05-03 15:47] VITALS: BP_SYST 145
[~2021-05-03 15:47] MED LIST changes: -ASPI-1153 PO; +ASPI-1393 PO
--- NOTE | 2021-05-03 15:47 | NUR ---
BROUGHT IN BY [facility] FROM [facility].
--- NOTE | 2021-05-03 17:28 | NUR ---
MULTIPLE STAFF ATTEMPTING PIV
[2021-05-03] MEDS ORDERED: MORPHINE 4 MG INJ. 4 MG/ML VIAL IVP ONE (17:45)
[2021-05-03] MEDS ORDERED: CLOPIDOGREL BISULFATE 75 MG TABLET PO ONE (17:45)
[2021-05-03 17:55] LABS: BASOPHILS % (AUTO) 0.5 % (0.0-2.0); EOSINOPHILS # (AUTO) 0.2 K/uL (0.0-0.4); EOSINOPHILS % (AUTO) 1.9 % (0.0-4.0); HEMATOCRIT 36.4 % (36-48); HEMOGLOBIN 12.3 g/dL (12.0-16.0); LYMPHOCYTES # (AUTO) 3.5 K/uL (1.0-5.5); LYMPHOCYTES % (AUTO) 35.8 % (20.5-51.5); MEAN CORPUSCULAR HEMOGLOBIN 31 pg (27-31); MEAN CORPUSCULAR HGB CONC 34 % (32-36); MEAN CORPUSCULAR VOLUME 93 fL (79.0-98.0); MONOCYTES # (AUTO) 1.2 K/uL (0.0-1.0); MONOCYTES % (AUTO) 11.9 % (1.7-9.3); NEUTROPHILS # (AUTO) 4.9 K/uL (1.8-7.7); NEUTROPHILS % (AUTO) 49.9 % (40.0-70.0); PLATELET COUNT (AUTO) 224 K/uL (130-430); RED BLOOD CELL COUNT(AUTO) 3.92 MIL/uL (4.2-6.2); RED CELL DISTRIBUTION WIDTH 13.8 % (9.0-15.0); WHITE BLOOD COUNT (AUTO) 9.8 K/uL (4.8-10.8)
[2021-05-03 17:57] LABS: ANION GAP 8 (5-15); CALCIUM 9.5 mg/dL (8.4-11.0); CHLORIDE 105 mmol/L (98-107); CREATININE 0.81 mg/dL (0.55-1.30); GLUCOSE 74 mg/dL (70-99); POTASSIUM 4.5 mmol/L (3.5-5.1); SODIUM SERUM 139 mmol/L (136-145); UREA NITROGEN, BLOOD 23 mg/dL (8-21)
[2021-05-03 17:58] LABS: GFR AFRICAN AMERICAN 90 mL/min (>90)
[2021-05-03 18:05] LABS: ALANINE AMINOTRANSFERASE 26 U/L (12-78); ALBUMIN 3.4 g/dL (3.4-4.8); ASPARTATE AMINOTRANSFERASE 18 U/L (10-37); TOTAL BILIRUBIN 0.2 mg/dL (0.0-1.0)
--- NOTE | 2021-05-03 18:17 | NUR ---
UP AMBULATES STEADY GATE TO BR
--- NOTE | 2021-05-03 18:35 | NUR ---
PATIENTS GARETH CASTILLO [phone]
[2021-05-03] MEDS ORDERED: MORPHINE 4 MG INJ. 4 MG/ML VIAL IVP PRN (19:15)
--- NOTE | 2021-05-03 19:30 | NUR ---
ASSUME CARE FOR PT FROM [facility]
--- NOTE | 2021-05-03 19:35 | NUR ---
Patient will be admitted to care of DR RAMIREZ. Admitted to TELE unit. Will go to room TBD. Belongings list completed. Complete and up to date summary report printed. SBAR report to be given at bedside with opportunity for questions.
--- NOTE | 2021-05-03 20:02 | NUR ---
Cielo gao in ED - 05/03/21 at 2002 by EMILIEGS BLOOD DRAWN FROM PT FOR ANTIBIOTIC THERAPY
--- NOTE | 2021-05-03 20:09 | NUR ---
PT IS FULL CODE
[2021-05-03] MEDS ORDERED: LOPE2TAB25 PO (20:26)
[2021-05-03] MEDS ORDERED: METF-863 PO (20:26)
[2021-05-03] MEDS ORDERED: LISI-209 PO (20:26)
[2021-05-03] MEDS ORDERED: LIP10 PO (20:26)
[2021-05-03] MEDS ORDERED: MORP30TA59 PO (20:28)
[2021-05-03] MEDS ORDERED: PARO-63 PO (20:28)
[2021-05-03] MEDS ORDERED: PRO40 PO (20:28)
[2021-05-03] MEDS ORDERED: NITSL PO (20:32)
[2021-05-03] MEDS ORDERED: ACET-2439 PO (20:32)
[2021-05-03] MEDS ORDERED: ROPI0.5T4 PO (20:32)
[2021-05-03] MEDS ORDERED: ALPR0.25 PO (20:32)
[2021-05-03] MEDS ORDERED: ZOLP5TAB7 PO (20:32)
--- NOTE | 2021-05-03 20:34 | NUR ---
Medication reconciliation completed with information provided by [facility]. Any prior medication reconciliation on file was reviewed and corrected.
--- NOTE | 2021-05-03 20:38 | NUR ---
ADMIT NOTE Received pt from ER to the floor with a diagnosis of CHEST PAIN. Admission process initiated. patient oriented to pain management, safety and call light-teach back done.
--- NOTE | 2021-05-03 21:00 | NUR ---
[facility] nurse present. IV present no signs or symptoms of infiltration.
[2021-05-03] MEDS ORDERED: NITROGLYCERIN 0.4 MG TAB.SUBL SL PRN (21:15)
[2021-05-03 21:17] VITALS: BP_SYST 142
[2021-05-03] MEDS ORDERED: LevALBUTEROL HCL 1.25 MG/0.5 ML *CONC.* VIAL.NEB (XOPENEX CONC.) INH PRN (21:30)
[2021-05-03] MEDS ORDERED: INSULIN REGULAR, HUMAN 100 UNITS/ML, 10 ML VIAL (humuLIN R) SUBCUT PRN (21:30)
[2021-05-03] MEDS ORDERED: ACETAMINOPHEN 325 MG TABLET PO PRN (21:30)
[2021-05-03] MEDS ORDERED: NALOXONE HCL 0.4 MG/ML AMP (NARCAN) IVP PRN (21:30)
[2021-05-03] MEDS ORDERED: ENOXAPARIN SODIUM 40 MG/0.4 ML SYRINGE ONE (21:31)
[2021-05-03] MEDS: ENOXAPARIN SODIUM 40 MG/0.4 ML SYRINGE SUBCUT SCH (21:36)
--- NOTE | 2021-05-03 21:36 | NUR ---
Note murray in EDM - 05/03/21 at 2136 by SDEDGS Transfer to [facility]A via ACLS protocol. Licensed nurse present. IV present no signs or symptoms of infiltration.
[2021-05-03] MEDS: MORPHINE 2 MG/ML INJ. SYRINGE IVP PRN (21:37)
[2021-05-03 22:00] VITALS: BP_SYST 140
--- NOTE | 2021-05-03 22:30 | NUR ---
Patient denies any chest pain , but not feel relax and uneasy Xanax po given , safety/fall precaution initiated.
[2021-05-03] MEDS: ALPRAZolam 0.25 MG TABLET PO PRN (22:38)
[2021-05-03] MEDS: ZOLPIDEM TARTRATE 5 MG TABLET PO PRN (23:43)
[2021-05-03 23:47] VITALS: BP_SYST 140
--- NOTE | 2021-05-04 00:29 | NUR ---
CONSULTATION PAGED/CALLED Reason for Consultation: CHEST PAIN Person Who was Notified: LUTHER Consulting Physician: Dr. Copeland Produce Buyer Specialty: Code Official Ordering Physician: Dr. Bernal
--- NOTE | 2021-05-04 01:51 | NUR ---
PATIENT RESTING: Patient resting quietly. No acute distress noted. telemetry NSR.
[2021-05-04 02:22] VITALS: BP_SYST 124
[2021-05-04] MEDS: MORPHINE 2 MG/ML INJ. SYRINGE IVP PRN ×5 (02:22→22:20)
[2021-05-04 07:55] LABS: BASOPHILS % (AUTO) 0.6 % (0.0-2.0); EOSINOPHILS # (AUTO) 0.2 K/uL (0.0-0.4); EOSINOPHILS % (AUTO) 2.8 % (0.0-4.0); HEMATOCRIT 36.2 % (36-48); HEMOGLOBIN 12.4 g/dL (12.0-16.0); LYMPHOCYTES # (AUTO) 2.2 K/uL (1.0-5.5); LYMPHOCYTES % (AUTO) 34.3 % (20.5-51.5); MEAN CORPUSCULAR HEMOGLOBIN 32 pg (27-31); MEAN CORPUSCULAR HGB CONC 34 % (32-36); MEAN CORPUSCULAR VOLUME 93 fL (79.0-98.0); MONOCYTES # (AUTO) 0.6 K/uL (0.0-1.0); MONOCYTES % (AUTO) 9.9 % (1.7-9.3); NEUTROPHILS # (AUTO) 3.3 K/uL (1.8-7.7); NEUTROPHILS % (AUTO) 52.4 % (40.0-70.0); PLATELET COUNT (AUTO) 208 K/uL (130-430); RED BLOOD CELL COUNT(AUTO) 3.91 MIL/uL (4.2-6.2); RED CELL DISTRIBUTION WIDTH 13.6 % (9.0-15.0); WHITE BLOOD COUNT (AUTO) 6.4 K/uL (4.8-10.8)
[2021-05-04 08:00] VITALS: BP_SYST 142
--- NOTE | 2021-05-04 08:00 | NUR ---
MORNING ROUNDS: PATIENT IS AWAKE AND ALERT LAYING SEMI FOWLERS IN BED. PATIENT HAS ALL SAFETY PRECAUTIONS IN PLACE. EDUCATED TO USE CALL LIGHT FOR ASSISTANCE. CALL LIGHT IS WITH IN REACH. PATIENT IS ON RA, DENIES ANY PAIN. SINUS TACH ON MONITOR. PATIENT HAS NO OTHER NEEDS AT THIS TIME.
[2021-05-04] MEDS: PANTOPRAZOLE SODIUM 40 MG TAB PO SCH (09:07)
[2021-05-04] MEDS: LOPERAMIDE HCL 2 MG CAPSULE PO SCH (09:08)
[2021-05-04] MEDS: PARoxetine HCL 20 MG TABLET PO SCH (09:09)
[2021-05-04] MEDS: lisinopriL 5 MG TABLET PO SCH (09:09)
[2021-05-04] MEDS: metFORMIN HCL 500 MG TABLET PO SCH ×2 (09:17→17:07)
[2021-05-04] MEDS: MORPHINE SULFATE 30 MG TABLET.SA PO SCH ×2 (09:23→20:19)
[2021-05-04 10:29] LABS: ANION GAP 8 (5-15); CALCIUM 9.1 mg/dL (8.4-11.0); CHLORIDE 103 mmol/L (98-107); CREATININE 0.74 mg/dL (0.55-1.30); GLUCOSE 117 mg/dL (70-99); POTASSIUM 4.4 mmol/L (3.5-5.1); SODIUM SERUM 139 mmol/L (136-145); UREA NITROGEN, BLOOD 18 mg/dL (8-21)
[2021-05-04 10:43] LABS: GFR AFRICAN AMERICAN 100 mL/min (>90)
[2021-05-04] MEDS: ALPRAZolam 0.25 MG TABLET PO PRN ×2 (11:11→21:30)
--- NOTE | 2021-05-04 12:00 | NUR ---
RN ROUNDS: PATIENT IS AWAKE AND ALERT LAYING SEMI FOWLERS IN BED. PATIENT HAS ALL SAFETY PRECAUTIONS IN PLACE. EDUCATED TO USE CALL LIGHT FOR ASSISTANCE. CALL LIGHT IS WITH IN REACH. PATIENT IS ON RA, DENIES ANY PAIN, NPO STATUS FOR CT WITH AND WITHOUT CONTRAST. SINUS TACH ON MONITOR. PATIENT HAS NO OTHER NEEDS AT THIS TIME
[2021-05-04 12:30] VITALS: BP_SYST 115
[2021-05-04] MEDS ORDERED: DIATR MEGLU/DIATRIZ SOD 30 ML SOLUTION PO ONE (12:47)
--- NOTE | 2021-05-04 13:12 | NUR ---
anotheriv: reinserted anotheriv ,using g#29 Addendum: 05/04/21 at 1314 by July Buchanan RN Corrected above notes: Reinserted another iv using g#20,with good blood return.
[2021-05-04 16:00] VITALS: BP_SYST 126
--- NOTE | 2021-05-04 16:00 | NUR ---
Pt to CT: Pt off unit to CT
--- NOTE | 2021-05-04 18:29 | NUR ---
CLOSING ROUNDS: PATIENT IS AWAKE AND ALERT LAYING IN BED. PATIENT HAS ALL SAFETY PRECAUTIONS IN PLACE. EDUCATED TO USE CALL LIGHT FOR ASSISTANCE. CALL LIGHT IS WITH IN REACH. PATIENT IS ON RA, DENIES ANY PAIN, ATE DINNER. NEW LEFT FOREARM 22G. PATIENT HAS NO OTHER NEEDS AT THIS TIME.
[2021-05-04 20:00] VITALS: BP_SYST 124
[2021-05-04] MEDS: ENOXAPARIN SODIUM 40 MG/0.4 ML SYRINGE SUBCUT SCH (20:14)
[2021-05-04] MEDS: ZOLPIDEM TARTRATE 5 MG TABLET PO PRN (20:19)
--- NOTE | 2021-05-04 20:38 | NUR ---
REFUSED BS CHECKS STATES "WAS DONE AT AROUND 4 O CLOCK." DOCUMENTATION SHOWS DONE AT 1100. EDUCATED PATIENT ABOUT RISKS OF REFUSAL. PATIENT ADAMANT ON REFUSAL.
[2021-05-04] MEDS ORDERED: ATORVASTATIN 10 MG TABLET PO SCH (21:00)
--- NOTE | 2021-05-04 23:36 | NUR ---
PATIENT REQUESTING COUGH MEDICINE Paging Dr. Bernal at this time
--- NOTE | 2021-05-05 00:01 | NUR ---
DR. BERNAL CALLS BACK REGARDING ORDER Dr. Bernal calls back. Informs Dr. Bernal that patient, at this time, is requesting a cough medicine. Dr. Bernal responds aggressively: "Why are you calling me right now? Can't you see the doctor is sleeping right now?" Dr. Bernal then gives the order of robitussin 10cc ONCE.
[2021-05-05] MEDS ORDERED: guaiFENesin/DEXTROMETHORPHAN 10 ML UDC PO ONE (00:15)
[2021-05-05 00:45] VITALS: BP_SYST 133
--- NOTE | 2021-05-05 02:00 | NUR ---
ROUNDING NOTES Patient resting in bed - no s/s pain or distress noted. Respirations even and unlabored - head of bed elevated. IV site patent - no s/s redness, infection, or infiltration. Bed locked and in lowest position. Call light within reach
[2021-05-05] MEDS: MORPHINE 2 MG/ML INJ. SYRINGE IVP PRN ×3 (02:39→15:06)
[2021-05-05 08:00] VITALS: BP_SYST 126
--- NOTE | 2021-05-05 08:00 | NUR ---
Morning notes: Patient resting in bed - no s/s of distress noted. Respirations even and unlabored. IV site patent - no s/s redness, infection, or infiltration. Pt stated 01/29 pain in chest, gave morning meds for pain, will reassess. Bed locked and in lowest position. Call light within reach
[2021-05-05] MEDS: LOPERAMIDE HCL 2 MG CAPSULE PO SCH (08:53)
[2021-05-05] MEDS: metFORMIN HCL 500 MG TABLET PO SCH ×2 (08:53→17:51)
[2021-05-05] MEDS: MORPHINE SULFATE 30 MG TABLET.SA PO SCH (08:53)
[2021-05-05] MEDS: PARoxetine HCL 20 MG TABLET PO SCH (08:53)
[2021-05-05] MEDS: PANTOPRAZOLE SODIUM 40 MG TAB PO SCH (08:53)
[2021-05-05] MEDS: lisinopriL 5 MG TABLET PO SCH (08:54)
[2021-05-05 12:24] VITALS: BP_SYST 120
[2021-05-05 16:00] VITALS: BP_SYST 136
--- NOTE | 2021-05-05 17:10 | NUR ---
D/C Patient Patient given medication reconciliation form and D/C instructions. Exit Care provided. Patient verbalized understanding. MD discussed with patient the results and treatment provided. Ambulatory with steady gait for discharge to home. Patient in stable condition, ID band removed. IV catheter removed, intact and dressing applied, no active bleeding. Rx of Phenergan syrup given. Patient educated on pain management. All belongings sent with patient.[employer]ber ,arranged by patient's facility [facility].Picked up by pickup driver Erlinda going to [facility] in stable condition.[employer] license plate number [id number].
[2021-05-05] MEDS: ALPRAZolam 0.25 MG TABLET PO PRN (17:50)
[2021-05-05 18:16] VITALS: BP_SYST 123
[2021-05-05] MEDS ORDERED: PHEDM120 PO (18:27)
--- NOTE | 2021-05-05 18:51 | NUR ---
Closing notes: Patient resting in bed - no s/s pain or distress noted. Respirations even and unlabored - head of bed elevated. IV site patent - no s/s redness, infection, or infiltration. Bed locked and in lowest position. Call light within reach. Prepared discharge paper work, waiting for ride to complete discharge.
== END 2021-05-05 19:00 | disposition home or self-care (01) | DRG 206 ==
LOC: SED 15:47 → STU 19:10
PROVIDERS: ADMIT Family Medicine; ATTEND Family Medicine
DX: M94.0 Chondrocostal junction syndrome [Tietze] (principal); C22.8 Malignant neoplasm of liver, primary, unspecified as to type; E11.9 Type 2 diabetes mellitus without complications; F17.200 Nicotine dependence, unspecified, uncomplicated; F31.9 Bipolar disorder, unspecified; G89.4 Chronic pain syndrome; I10 Essential (primary) hypertension; G43.909 Migraine, unspecified, not intractable, without status migrainosus; E78.5 Hyperlipidemia, unspecified; Z20.822 Contact with and (suspected) exposure to COVID-19; Z60.2 Problems related to living alone; J44.9 Chronic obstructive pulmonary disease, unspecified; Z90.710 Acquired absence of both cervix and uterus; I25.2 Old myocardial infarction; Z88.8 Allergy status to other drugs, medicaments and biological substances; Z88.6 Allergy status to analgesic agent; Z91.013 Allergy to seafood; Z79.2 Long term (current) use of antibiotics; Z79.82 Long term (current) use of aspirin; Z79.899 Other long term (current) drug therapy; Z90.49 Acquired absence of other specified parts of digestive tract
CPT/HCPCS: 36415; 71045; 76376; 80048; 80053; 82105; 82550; 82962; 83880; 84484; 85025; 85379; 87081; 93005; 96374; 99285; G0378; J1650; J1815; J2270; J2274; Q9964; Q9967